=== PATIENT | female | born 2000 | race African-American/Black ===

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

== ENCOUNTER 2020-02-14 17:53 | Emergency (ER) | payer SELFPAY ==
[~2020-02-14] VITALS: Ht 172.7 cm; Wt 98.4 kg
[~2020-02-14 17:53] MED LIST changes: +CYCLOBENZAPRINE10 MG PO; +MEDROL DOSEPAK4 MG PO; +NAPROSYN500 MG PO
[2020-02-14 19:00] LABS: BILIRUBIN NEGATIVE (NEGATIVE); BLOOD 2+ (NEGATIVE); CLARITY CLOUDY (CLEAR); COLOR YELLOW (YELLOW); GLUCOSE NEGATIVE (NEGATIVE); KETONE NEGATIVE (NEGATIVE); LEUKO ESTERASE NEGATIVE (NEGATIVE); NITRITE POSITIVE (NEGATIVE); UROBILINOGEN 0.2 E.U./dl (0.2-1.0)
[2020-02-14 19:06] LABS: BASO # 0.1 10*3/uL (0.0-0.1); BASO % 0.4 % (0.0-1.0); EOS # 0.2 10*3/uL (0.0-0.4); EOS % 1.2 % (1.0-4.0); HEMATOCRIT 38.4 % (37.0-47.0); MEAN CORPUSCULAR HGB 24.9 pg (27.0-31.0); MEAN CORPUSCULAR HGB CONC 31.5 g/dl (33.0-37.0); MEAN PLATELET VOLUME 9.2 fl (9.6-12.3); MONO # 0.9 10*3/uL (0.1-1.0); NEUT # 8.4 10*3/uL (2.3-7.9); PLATELET COUNT AUTOMATED 424 10*3/uL (130-400); RED BLOOD COUNT 4.86 10*6/uL (4.10-5.10); RED CELL DISTRI WIDTH 14.6 % (0-14.5); WHITE BLOOD COUNT 12.5 10*3/uL (4.8-10.8)
[2020-02-14 19:07] LABS: BACTERIA 4+; RBC 0-2 rbc/hpf (0-2); WBC 16-20 wbc/hpf (0-5)
[2020-02-14 19:08] LABS: HYALINE CAST 0-2; MUCOUS 1+
[2020-02-14 19:20] LABS: ALBUMIN 3.7 gm/dl (3.1-4.5); ALKALINE PHOSPHATASE 85 U/L (45-117); BUN 8 mg/dl (7-24); CHLORIDE 106 mmol/L (98-107); CREATININE 0.73 mg/dL (0.55-1.02); POTASSIUM 3.5 mmol/L (3.5-5.1); SGOT/AST 10 IU/L (3-35); SGPT/ALT 25 U/L (12-78); SODIUM 138 mmol/L (136-145); TOTAL PROTEIN 7.6 gm/dL (6.4-8.2)
[2020-02-14] MEDS ORDERED: CEPHALEXIN500 M1 PO (19:43)
== END 2020-02-14 20:00 | disposition home or self-care (01) ==
LOC: ED 17:53
PROVIDERS: Nurse Practitioner Family
DX: O23.41 Unspecified infection of urinary tract in pregnancy, first trimester (principal); F31.9 Bipolar disorder, unspecified; Z3A.01 Less than 8 weeks gestation of pregnancy; Z79.899 Other long term (current) drug therapy

== ENCOUNTER → 2020-03-08 | Outpatient (CLI) | payer OTHER ==
[~2020-03-08] MED LIST changes: +CEPHALEXIN500 M1 PO
== END | disposition home or self-care (01) ==
LOC: US 13:30
DX: Z34.91 Encounter for supervision of normal pregnancy, unspecified, first trimester (principal); Z3A.09 9 weeks gestation of pregnancy

== ENCOUNTER 2022-01-30 05:13 | Emergency (ER) | payer OTHER ==
[~2022-01-30] VITALS: Ht 172.7 cm; Wt 92.2 kg
[2022-01-30] MEDS ORDERED: PREDNISONE20 M1 PO (06:30)
== END 2022-01-30 06:35 | disposition home or self-care (01) ==
LOC: ED 05:13
DX: J45.901 Unspecified asthma with (acute) exacerbation (principal)

== ENCOUNTER 2022-11-03 23:05 | Emergency (ER) | payer OTHER ==
[~2022-11-03] VITALS: Ht 172.7 cm; Wt 98.0 kg
[~2022-11-03 23:05] MED LIST changes: +PREDNISONE20 M1 PO
== END 2022-11-04 00:23 | disposition home or self-care (01) ==
LOC: ED 23:05
DX: O99.513 Diseases of the respiratory system complicating pregnancy, third trimester (principal); J45.901 Unspecified asthma with (acute) exacerbation; F41.9 Anxiety disorder, unspecified; K21.9 Gastro-esophageal reflux disease without esophagitis; Z87.891 Personal history of nicotine dependence; Z3A.30 30 weeks gestation of pregnancy

== ENCOUNTER 2024-12-24 00:52 | Emergency (ER) | payer OTHER ==
[~2024-12-24] VITALS: Ht 175.3 cm; Wt 97.5 kg
[2024-12-24] MEDS ORDERED: Albuterol Sulf/Ipratropium 3 ML VIAL NEB ONE (05:00)
== END 2024-12-24 06:39 | disposition left against medical advice (07) ==
LOC: ED 00:52
DX: M54.6 Pain in thoracic spine (principal); M25.511 Pain in right shoulder; M79.652 Pain in left thigh; J45.909 Unspecified asthma, uncomplicated; F17.200 Nicotine dependence, unspecified, uncomplicated; Z53.29 Procedure and treatment not carried out because of patient's decision for other reasons; Z79.899 Other long term (current) drug therapy; Z79.2 Long term (current) use of antibiotics; V03.00XA Pedestrian on foot injured in collision with car, pick-up truck or van in nontraffic accident, initial encounter; Y93.89 Activity, other specified; Y92.488 Other paved roadways as the place of occurrence of the external cause; Y99.8 Other external cause status

== ENCOUNTER 2025-05-26 14:02 | Emergency (ER) | payer OTHER ==
[~2025-05-26] VITALS: Ht 175.2 cm; Wt 97.5 kg
[2025-05-26] MEDS ORDERED: NAPROSYN500 MG PO (16:15)
[2025-05-26] MEDS ORDERED: AMOX-CLAV 875-1 EACH PO (16:15)
[2025-05-26] MEDS ORDERED: NAPROXEN 250 MG TAB PO ONE (16:20)
[2025-05-26] MEDS ORDERED: Amoxicillin/Clavulanate Pota 875 MG TAB PO ONE (16:20)
== END 2025-05-26 16:45 | disposition home or self-care (01) ==
LOC: ED 14:02
DX: K04.7 Periapical abscess without sinus (principal)